=== PATIENT | female | born 1995 | race Two or more races ===

== ENCOUNTER 2023-08-30 06:39 | Inpatient (IN) ==
[2023-08-30] MEDS ORDERED: AMPICILLIN VIAL 2 GRAM ONE (07:10)
[2023-08-30] MEDS ORDERED: PITOCIN ONE (07:10)
[2023-08-30] MEDS ORDERED: LR 1,000 ML IV 1,000 ML IV ONE (07:11)
[2023-08-30] MEDS ORDERED: NS 100 ML IV 100 ML ONE ×2 (07:11→12:02)
[2023-08-30] MEDS ORDERED: REGLAN INJ 10 MG VIAL IVP PRN (07:27)
[2023-08-30] MEDS ORDERED: ZOFRAN INJ 4 MG VIAL IVP PRN (07:27)
[2023-08-30] MEDS ORDERED: NUBAIN INJ 20 MG AMP IVP PRN (07:27)
[2023-08-30] MEDS: LR 1,000 ML IV 1,000 ML IV SCH (07:30)
[2023-08-30] MEDS ORDERED: D5 1/2 NS 1,000 ML 1,000 ML IV SCH (08:00)
[2023-08-30] MEDS: AMPICILLIN VIAL 2 GRAM 2 G in NS 100 ML IV + SPIKE MINIBAG* 100 ML IV SCH (08:24)
[2023-08-30] MEDS: OXYTOCIN 20 UNIT/1,000 ML-NS 20 UNIT/1,000 ML PLAST..BAG IV PRN (08:25)
[2023-08-30 08:34] LABS: BASOPHILS % (AUTO) 0.4 % (0.2-1.0); EOSINOPHILS # (AUTO) 0.1 x10^3/uL (0.0-0.2); EOSINOPHILS % (AUTO) 0.7 % (0.9-2.9); HEMATOCRIT 33.9 % (36.0-47.0); HEMOGLOBIN 11.2 g/dL (12.0-16.0); LYMPHOCYTES # (AUTO) 1.8 X10^3/uL (1.3-2.9); LYMPHOCYTES % (AUTO) 21.1 % (21.0-51.0); MEAN CORPUSCULAR HEMOGLOBIN 27.9 pg (27.0-34.0); MEAN CORPUSCULAR HGB CONC 33.1 g/dL (33.0-35.0); MEAN CORPUSCULAR VOLUME 84.5 fL (80.0-100.0); MEAN PLATELET VOLUME 9.3 fL (7.4-11.0); MONOCYTES # (AUTO) 0.6 x10^3/uL (0.3-0.8); MONOCYTES % (AUTO) 6.8 % (0.0-13.0); NEUTROPHILS # (AUTO) 6.2 x10^3/uL (2.2-4.8); PLATELET COUNT 206 X10^3/uL (150.0-450.0); RED BLOOD COUNT 4.02 X10^6/uL (3.5-5.4); RED CELL DISTRIBUTION WIDTH 13.8 % (11.6-16.5); WHITE BLOOD COUNT 8.7 X10^3/uL (3.6-10.0)
[2023-08-30 08:43] LABS: BLOOD UREA NITROGEN 7 mg/dL (7-18); CALCIUM 8.7 mg/dL (8.5-10.1); CARBON DIOXIDE 22.3 mmol/L (21-32); CHLORIDE 106 mmol/L (98-107); CREATININE 0.56 mg/dL (0.55-1.02); GLUCOSE 78 mg/dL (65-99); POTASSIUM 3.8 mmol/L (3.5-5.1); SODIUM 136 mmol/L (136-145); eGFR NON BLACK RACES > 60 (>60)
[2023-08-30] MEDS ORDERED: AMPICILLIN VIAL 1 GRAM ONE (12:01)
[2023-08-30] MEDS: NUBAIN INJ 200 MG VIAL MULTIDOSE ONE (12:17)
[2023-08-30] MEDS: AMPICILLIN VIAL 1 GRAM 1 G in NS 50 ML IV + SPIKE MINIBAG* 50 ML IV SCH (12:20)
[2023-08-30] MEDS: BETADINE SOLN ONE (13:30)
[2023-08-30] MEDS: PITOCIN IVP ONE (13:35)
[2023-08-30] MEDS ORDERED: OXYTOCIN 20 UNIT/1,000 ML-NS 20 UNIT/1,000 ML PLAST..BAG IV SCH (13:35)
[2023-08-30] MEDS: XYLOCAINE 1 % (PLAIN) ONE (13:37)
[2023-08-30 14:54] LABS: BILIRUBIN,URINE NEGATIVE (NEGATIVE); BLOOD/HEMOGLOBIN,URINE 1+ (NEGATIVE); GLUCOSE, URINE NEGATIVE (NEGATIVE); KETONES,URINE NEGATIVE (NEGATIVE); LEUKOCYTE ESTERASE ,URINE NEGATIVE (NEGATIVE); NITRITES,URINE NEGATIVE (NEGATIVE); PROTEIN,URINE 2+ (NEGATIVE); UROBILINOGEN,URINE NORMAL (NORMAL)
[2023-08-30 15:10] LABS: APPEARANCE,URINE SLIGHTLY HAZY (CLEAR); BACTERIA,URINE TRACE /HPF (NEGATIVE); COLOR,URINE STRAW (YELLOW); SQUAMOUS EPITHELIAL CELL,UR MANY /HPF (NEGATIVE)
[2023-08-30] MEDS ORDERED: MILK OF MAGNESIA PO PRN (15:14)
[2023-08-30] MEDS ORDERED: AMBIEN PO PRN (15:14)
[2023-08-30] MEDS ORDERED: AMPICILLIN VIAL 1 GRAM 1 G in NS 50 ML IV 50 ML IV SCH (16:00)
[2023-08-30] MEDS: MOTRIN TAB 800 MG PO PRN (17:11)
[2023-08-30] MEDS ORDERED: ADACEL or BOOSTRIX TDaP VACCINE IM ONE (17:38)
[2023-08-30] MEDS: ADACEL or BOOSTRIX TDaP VACCINE IM ONE (17:38)
[2023-08-31 05:18] LABS: HEMATOCRIT 32.3 % (36.0-47.0); HEMOGLOBIN 10.7 g/dL (12.0-16.0)
[2023-08-31] MEDS: PRENATAL PLUS PO SCH (08:58)
[2023-08-31] MEDS: NORCO 5/325 MG TAB PO PRN (09:39)
[2023-08-31] MEDS ORDERED: DERMOPLAST PAIN RELIEF SPRAY TOP PRN (11:19)
[2023-08-31] MEDS: DERMOPLAST PAIN RELIEF SPRAY TOP PRN (11:30)
[2023-08-31 12:52] VITALS: BP 124/68; PULSE 71; RESP 20; TEMP 98.2; O2SAT 97
== END 2023-08-31 15:35 | disposition home or self-care (01) | DRG 807 ==
LOC: LD 06:39 → MED/SURG 14:45
PROVIDERS: ADMIT Obstetrics & Gynecology Obstetrics; ATTEND Obstetrics & Gynecology Obstetrics
DX: O98.82 Other maternal infectious and parasitic diseases complicating childbirth; Z37.0 Single live birth; O70.1 Second degree perineal laceration during delivery; B95.1 Streptococcus, group B, as the cause of diseases classified elsewhere; Z3A.39 39 weeks gestation of pregnancy